=== PATIENT | male | born 1995 | race African-American/Black ===

== ENCOUNTER 2017-07-17 09:19 | Emergency (ER) | payer SELFPAY ==
[~2017-07-17] VITALS: Ht 167.6 cm; Wt 68.4 kg
[2017-07-17 10:36] VITALS: BP 145/75
== END 2017-07-17 10:37 | disposition home or self-care (01) ==
LOC: EME 09:19
PROC: 3E0234Z Introduction of Serum, Toxoid and Vaccine into Muscle, Percutaneous Approach (ICD-10-PCS; principal; 2017-07-17)
DX: S61.012A Laceration without foreign body of left thumb without damage to nail, initial encounter (principal); W45.8XXA Other foreign body or object entering through skin, initial encounter; Z23 Encounter for immunization
CPT/HCPCS: 99281; 99283

== ENCOUNTER 2017-08-02 10:14 | Emergency (ER) | payer SELFPAY ==
[~2017-08-02] VITALS: Ht 157.5 cm; Wt 70.4 kg
[2017-08-02 13:13] LABS: EOSINOPHIL (%) 1.9 % (0-5); EOSINOPHIL COUNT 0.1 K/uL (0-0.3); HEMATOCRIT 38.5 % (38.0-50.0); IMMATURE GRANULOCYTE (%) 0.3 % (0.0-0.7); INSTRUMENT ABS NEUTROPHIL CT 5.1 K/uL; LYMPHOCYTE COUNT 1.4 K/uL (1.0-2.8); MCH 30.4 PG (29.0-34.0); MCHC 34.3 G/DL (30.0-36.0); MCV 88.7 FL (86-99); MONOCYTE (%) 11.6 % (3-12); MONOCYTE COUNT 0.9 K/uL (0-0.8); NEUTROPHIL (%) 66.9 % (45-76); NEUTROPHIL COUNT 5.1 K/uL (1.8-6.4); PLATELET COUNT 202 K/uL (156-360); RBC DIS.WIDTH-CV 13.2 % (11.8-14.6); RBC DIS.WIDTH-SD 43.7 % (39-53); RED BLOOD COUNT 4.34 M/uL (4.00-5.50); WHITE BLOOD COUNT 7.6 K/uL (4.1-10.2)
[2017-08-02 13:24] LABS: CHLORIDE 101 mEq/L (99-109); POTASSIUM 4.3 mEq/L (3.7-5.4); SODIUM 137 mEq/L (136-147)
[2017-08-02 13:25] LABS: GLUCOSE 92 mg/dL (70-99)
[2017-08-02 13:27] LABS: ANION GAP 10 MEQ/L (2-14)
[2017-08-02 13:29] LABS: GFR ESTIMATE (CALCULATED) > 59 mL/min/ (58.99-99999)
[2017-08-02 13:30] LABS: UREA NITROGEN (BUN) 12 mg/dL (9-23)
[2017-08-02] MEDS ORDERED: AUGMENTIN875 MG PO (17:24)
[2017-08-02] MEDS ORDERED: PERCOCET 5/31 TABLET PO (17:24)
[2017-08-02 17:40] VITALS: BP 121/56
== END 2017-08-02 17:41 | disposition home or self-care (01) ==
LOC: EME 10:14
PROVIDERS: Emergency Medicine
PROC: 0D9QXZZ Drainage of Anus, External Approach (ICD-10-PCS; principal; 2017-08-02)
DX: K61.2 Anorectal abscess (principal); R51 Headache
CPT/HCPCS: 74177; 80048; 85025; 99281; 99284; J2270; J2543; J7030